=== PATIENT | male | born 1945 | race Caucasian/White ===

== ENCOUNTER 2021-03-03 13:03 | Emergency (ER) | payer OTHER ==
[~2021-03-03 13:03] MED LIST: EDLUAR10 MG PO; GABAPENTIN300 MG PO; MAG-OXIDE 400M400 MG PO; MELOXICAM15 MG PO; NORCO 5-325 TA1 EACH PO; TRAMADOL HCL50 MG PO
[2021-03-03 14:05] LABS: BASOPHIL 0.8 % (0-2); EOSINOPHIL 1.8 % (0-7); HCT 40.7 % (42.0-52.0); HGB 13.4 g/dl (13.2-18.0); LYMPHOCYTE 10.6 % (15-48); MCHC 32.9 g/dL (32.0-36.0); MCV 85.1 fL (78.0-100.0); MONOCYTE 9.2 % (0-12); MPV 9.5 fL (6.0-9.5); NEUTROPHIL 77.2 % (41-80); NRBC 0; PLT 301 K/uL (150-400); RBC 4.78 M/uL (4.70-6.00); RDW 12.7 % (11.5-14.0); WBC 11.4 K/uL (4.0-10.5)
[2021-03-03 14:42] LABS: BUN/CREAT RATIO (CALC) 13.9 RATIO; CREATININE 0.79 mg/dL (0.67-1.17)
[2021-03-03 17:34] LABS: ALBUMIN 3.4 g/dL (3.4-5.0); BILIRUBIN - DIRECT 0.1 mg/dL (0.00-0.20); BILIRUBIN - TOTAL 0.6 mg/dL (0.2-1.0); GLOBULIN (CALCULATION) 4.4 g/dL; TOTAL PROTEIN 7.8 g/dL (6.4-8.2)
[2021-03-03 18:59] LABS: BILIRUBIN NEGATIVE (NEGATIVE); BLOOD NEGATIVE Ery/uL (NEGATIVE); CLARITY CLEAR (CLEAR); COLOR YELLOW (YELLOW); GLUCOSE (U) NORMAL (NORMAL); LEUKOCYTES NEGATIVE Leu/uL (NEGATIVE); NITRITE NEGATIVE (NEGATIVE); PROTEIN NEGATIVE (NEGATIVE); UROBILINOGEN 0.2 mg/dL (0.2-1.0)
[2021-03-05] MEDS ORDERED: PERCOCET 10-321 EACH PO (10:54)
== END 2021-03-03 20:20 | disposition home or self-care (01) ==
LOC: FER 13:03
PROVIDERS: Emergency Medicine
DX: C22.8 Malignant neoplasm of liver, primary, unspecified as to type (principal); K63.89 Other specified diseases of intestine; Z88.0 Allergy status to penicillin; Z20.822 Contact with and (suspected) exposure to COVID-19
CPT/HCPCS: 36415; 80048; 80076; 81003; 83690; 85025; Q9967; U0002

== ENCOUNTER → 2021-03-05 | Day surgery (SDC) | payer OTHER ==
[~2021-03-05] MED LIST changes: +CELEXA20 MG PO; +COMPAZINE10 MG PO; +DEXAMETHASONE 2M2 MG PO; +MIRALAX17 GM PO; +MS CONTIN15 MG PO; +PERCOCET 10-321 EACH PO; +XANAX0.5 MG PO
== END | disposition home or self-care (01) ==
LOC: FAS 08:57
DX: C18.3 Malignant neoplasm of hepatic flexure (principal); K57.30 Diverticulosis of large intestine without perforation or abscess without bleeding; K21.9 Gastro-esophageal reflux disease without esophagitis; Z88.0 Allergy status to penicillin; Z96.652 Presence of left artificial knee joint; Z98.890 Other specified postprocedural states; Z79.899 Other long term (current) drug therapy; Z20.822 Contact with and (suspected) exposure to COVID-19
CPT/HCPCS: 82378; 88305; J1610; J2405; J2704; J7120

== ENCOUNTER → 2021-03-11 | Day surgery (SDC) | payer OTHER ==
[~2021-03-11] VITALS: Ht 177.8 cm; Wt 95.2 kg
== END | disposition home or self-care (01) ==
LOC: FAS 10:48
DX: I87.2 Venous insufficiency (chronic) (peripheral) (principal); G47.30 Sleep apnea, unspecified; K21.9 Gastro-esophageal reflux disease without esophagitis; F17.210 Nicotine dependence, cigarettes, uncomplicated; Z99.89 Dependence on other enabling machines and devices; Z88.0 Allergy status to penicillin; Z79.899 Other long term (current) drug therapy; Z20.822 Contact with and (suspected) exposure to COVID-19
CPT/HCPCS: 71045; 76000; C1788; J0690; J1644; J2250; J2704; J3010; J7120; U0002

== ENCOUNTER 2021-04-14 12:51 | Inpatient (IN) | payer OTHER ==
[~2021-04-14] VITALS: Ht 177.8 cm; Wt 84.9 kg
[~2021-04-14 12:51] MED LIST changes: -CELEXA20 MG PO; -COMPAZINE10 MG PO; -DEXAMETHASONE 2M2 MG PO; -MIRALAX17 GM PO; -MS CONTIN15 MG PO; -XANAX0.5 MG PO
--- NOTE | 2021-04-14 13:20 | NUR ---
PATIENT'S AND SON PRESENT AT ADMISSION, PATIENT ANSWERS ALL ORIENTATION QUESTIONS APPROPRIATELY. PATIENT IS EXTREMELY RESTLESS, UNABLE TO GET COMFORTABLE IN BED, TURNING FROM SIDE TO SIDE, SITTING UP/ LAYING DOWN
[2021-04-14] MEDS ORDERED: XANAX0.5 MG PO (13:31)
[2021-04-14] MEDS ORDERED: CELEXA20 MG PO (13:32)
[2021-04-14] MEDS ORDERED: MS CONTIN15 MG PO (13:33)
[2021-04-14] MEDS ORDERED: DEXAMETHASONE 2M2 MG PO (13:37)
[2021-04-14] MEDS ORDERED: COMPAZINE10 MG PO (13:37)
[2021-04-14] MEDS ORDERED: MIRALAX17 GM PO (13:38)
[2021-04-14 15:13] LABS: BASOPHIL 1.2 % (0-2); EOSINOPHIL 0.4 % (0-7); HCT 42.4 % (42.0-52.0); HGB 13.8 g/dl (13.2-18.0); LYMPHOCYTE 17.3 % (15-48); MCH 27.7 pg (25.0-31.0); MCHC 32.5 g/dL (32.0-36.0); MCV 85.1 fL (78.0-100.0); MONOCYTE 14.5 % (0-12); MPV 9.4 fL (6.0-9.5); NEUTROPHIL 66.2 % (41-80); NRBC 0; PLT 208 K/uL (150-400); RBC 4.98 M/uL (4.70-6.00); RDW 15.1 % (11.5-14.0); WBC 5.2 K/uL (4.0-10.5)
[2021-04-14 15:35] LABS: IRON % SATURATION 15.7 %SAT (20-50)
[2021-04-14 15:52] LABS: INR 1.2 (0.9-1.2); PROTHROMBIN TIME 14.4 SECONDS (11.4-13.6); PTT 32.5 SECONDS (22.2-34.7)
[2021-04-14 15:54] LABS: BILIRUBIN 1+ mg/dL (NEGATIVE); BLOOD NEGATIVE Ery/uL (NEGATIVE); CLARITY HAZY (CLEAR); COLOR ORANGE (YELLOW); GLUCOSE (U) NORMAL (NORMAL); LEUKOCYTES TRACE Leu/uL (NEGATIVE); NITRITE NEGATIVE (NEGATIVE); PROTEIN NEGATIVE (NEGATIVE); pH 6.5 (5.0-9.0)
[2021-04-14 15:56] LABS: ALBUMIN 2.7 g/dL (3.4-5.0); BILIRUBIN - TOTAL 0.9 mg/dL (0.2-1.0); BUN/CREAT RATIO (CALC) 14.5 RATIO; CREATININE 0.62 mg/dL (0.67-1.17); GLOBULIN (CALCULATION) 3.6 g/dL; MAGNESIUM 2.1 mg/dL (1.8-2.4); PHOSPHORUS 2.8 mg/dL (2.6-4.7); POTASSIUM 4.2 mmol/L (3.5-5.1); TOTAL PROTEIN 6.3 g/dL (6.4-8.2)
[2021-04-14 16:02] LABS: BACTERIA 3+; RENAL EPITHELIAL CELLS RARE; URINARY RBC RARE
[2021-04-14 16:03] LABS: SQUAMOUS EPITHELIAL CELLS RARE
[2021-04-15 07:07] LABS: EOSINOPHIL 0.6 % (0-7); HCT 39.6 % (42.0-52.0); HGB 13.3 g/dl (13.2-18.0); LYMPHOCYTE 18.6 % (15-48); MCH 27.8 pg (25.0-31.0); MCHC 33.6 g/dL (32.0-36.0); MCV 82.7 fL (78.0-100.0); MONOCYTE 16.3 % (0-12); MPV 9.7 fL (6.0-9.5); NEUTROPHIL 63.3 % (41-80); NRBC 0; PLT 169 K/uL (150-400); RBC 4.79 M/uL (4.70-6.00); WBC 4.8 K/uL (4.0-10.5)
[2021-04-15 07:27] LABS: BUN/CREAT RATIO (CALC) 13.2 RATIO; CREATININE 0.53 mg/dL (0.67-1.17); MAGNESIUM 1.9 mg/dL (1.8-2.4); POTASSIUM 3.4 mmol/L (3.5-5.1)
--- NOTE | 2021-04-15 15:59 | NUR ---
04/15/21 Mr. Taylor lives at home with his spouse. The couple have 3 children. The children have been taking turns staying in the home. Pt has a dx of metastatic colorectal cancer. Mr. Taylor and spouse have decided not to continue chemo treatment and to return home with Hospice. A referral has been made to Hospice; awaiting response. - Mr. Montejo has a rw,wc, and s. chair. They would like a hospital bed. - Ms. Montejo believes she can provide transportation home via car.
[2021-04-16 04:20] LABS: BASOPHIL 1.1 % (0-2); EOSINOPHIL 1.6 % (0-7); HCT 40.3 % (42.0-52.0); HGB 13.3 g/dl (13.2-18.0); LYMPHOCYTE 17.3 % (15-48); MCH 27.6 pg (25.0-31.0); MCV 83.6 fL (78.0-100.0); MONOCYTE 20.4 % (0-12); MPV 9.7 fL (6.0-9.5); NEUTROPHIL 59.4 % (41-80); NRBC 0; PLT 197 K/uL (150-400); RBC 4.82 M/uL (4.70-6.00); RDW 15.6 % (11.5-14.0)
[2021-04-16 04:24] LABS: WBC 4.5 K/uL (4.0-10.5)
[2021-04-16 04:36] LABS: BUN/CREAT RATIO (CALC) 13.8 RATIO; CREATININE 0.58 mg/dL (0.67-1.17); POTASSIUM 3.8 mmol/L (3.5-5.1)
--- NOTE | 2021-04-16 10:11 | NUR ---
04/16/21 Alejandra at [facility] reports to have accepted patient. Alejandra ordered a hospital bed. Family has been advised to inform the hospital when the bed has been delivered. Family was provided with the telephone # to Hospice and advised to call when they arrive home. Report given to MS Tamela rock picker.
== END 2021-04-16 14:17 | disposition hospice, home (50) | DRG 689 ==
LOC: FMS 12:51
PROVIDERS: ADMIT Internal Medicine
DX: N30.00 Acute cystitis without hematuria (principal); G93.41 Metabolic encephalopathy; C19 Malignant neoplasm of rectosigmoid junction; C78.00 Secondary malignant neoplasm of unspecified lung; C78.7 Secondary malignant neoplasm of liver and intrahepatic bile duct; C77.9 Secondary and unspecified malignant neoplasm of lymph node, unspecified; C78.6 Secondary malignant neoplasm of retroperitoneum and peritoneum; Z66 Do not resuscitate; Z51.5 Encounter for palliative care; F43.10 Post-traumatic stress disorder, unspecified; Z20.822 Contact with and (suspected) exposure to COVID-19; G89.3 Neoplasm related pain (acute) (chronic); D50.9 Iron deficiency anemia, unspecified; R33.9 Retention of urine, unspecified; M19.90 Unspecified osteoarthritis, unspecified site; G47.00 Insomnia, unspecified; E86.0 Dehydration; M51.36 Other intervertebral disc degeneration, lumbar region; K59.00 Constipation, unspecified; Z96.652 Presence of left artificial knee joint; Z79.899 Other long term (current) drug therapy; Z79.891 Long term (current) use of opiate analgesic; Z98.890 Other specified postprocedural states; Z88.0 Allergy status to penicillin
CPT/HCPCS: 36415; 70450; 80048; 80053; 81001; 82140; 82607; 83540; 83550; 83605; 83735; 83880; 84100; 85025; 85610; 85730; 87076; 87088; 87186; 94010; 97163; 97166; C9113; J0696; J1642; J1650; J1885; J2270; J2916; U0002